=== PATIENT | male | born 1975 | race Caucasian/White ===

== ENCOUNTER 2020-12-19 05:37 | Inpatient (IN) | payer OTHER ==
[2020-12-19] MEDS ORDERED: Celecoxib 200 MG Cap PO ONE (05:45)
[2020-12-19] MEDS ORDERED: Scopolamine 1.5 MG Transdermal Patch TOP ONE (05:45)
[2020-12-19] MEDS ORDERED: Acetaminophen 500 MG Tab PO ONE (05:45)
[2020-12-19] MEDS ORDERED: Dextrose 5%-Lactated Ringers 1,000 ML IV SCH ×2 (06:00→11:45)
[2020-12-19] MEDS ORDERED: cefOXitin 2 GM Vial ONE (06:37)
[2020-12-19] MEDS ORDERED: fentaNYL 250 MCG/5 ML SDV ONE ×2 (07:10→08:40)
[2020-12-19] MEDS ORDERED: Succinylcholine 200 MG/10 ML MDV ONE (07:11)
[2020-12-19] MEDS ORDERED: Glycopyrrolate 0.2 MG/ML 5 ML MDV ONE (07:11)
[2020-12-19] MEDS ORDERED: Dexamethasone 4 MG/ML SDV ONE (07:11)
[2020-12-19] MEDS ORDERED: Ondansetron 4 MG/2 ML SDV ONE (07:11)
[2020-12-19] MEDS ORDERED: Rocuronium 50 MG/5 ML Vial ONE (07:11)
[2020-12-19] MEDS ORDERED: Propofol 200 MG/20 ML SDV ONE (07:11)
[2020-12-19] MEDS ORDERED: Neostigmine Methylsulfate 1 MG/ML 5 ML Syringe ONE (07:11)
[2020-12-19] MEDS ORDERED: cefOXitin 2 GM in Sodium Chloride 0.9% 50 ML IV ONE (07:15)
[2020-12-19] MEDS ORDERED: Ketamine 50 MG in Sodium Chloride 0.9% 49.5 ML IV SCH (07:30)
[2020-12-19] MEDS ORDERED: Magnesium Sulfate 3.7 GM in Sodium Chloride 0.9% 100 ML IV SCH (07:30)
[2020-12-19] MEDS ORDERED: Ketamine 500 MG/5 ML MDV IV SCH (07:30)
[2020-12-19 09:54] LABS: HEMOGLOBIN A1C 7.5 % (4.5-6.2)
[2020-12-19] MEDS ORDERED: hydrOXYzine HCL 100 MG/2 ML SDV IM ONE (10:18)
[2020-12-19] MEDS ORDERED: fentaNYL 100 MCG/2 ML SDV IVPUSH ONE (10:18)
[2020-12-19] MEDS ORDERED: Glucagon,Human Recombinant 1 MG Vial IM PRN ×2 (10:28→12:00)
[2020-12-19] MEDS ORDERED: 50% Dextrose in Water 50 ML Syringe IVPUSH PRN ×2 (10:28→12:00)
[2020-12-19] MEDS ORDERED: Insulin Lispro 100 Unit/ML 3 ML KwikPen SUBCUT ONE (10:40)
[2020-12-19] MEDS ORDERED: Cyclobenzaprine 10 MG Tab PO PRN (11:32)
[2020-12-19] MEDS ORDERED: HYDROmorphone 0.5 MG/0.5 ML Syringe ONE (11:35)
[2020-12-19] MEDS ORDERED: Cetirizine 10 MG Tab PO PRN (11:39)
[2020-12-19] MEDS ORDERED: Insulin Lispro 100 Unit/ML 3 ML KwikPen SUBCUT SCH (12:00)
[2020-12-19] MEDS ORDERED: hydrOXYzine HCL 100 MG/2 ML SDV IM PRN (12:00)
[2020-12-19] MEDS ORDERED: HYDROmorphone 1 MG/ML Syringe IV PRN (12:00)
[2020-12-19] MEDS ORDERED: Calcium Gluconate 10% 1 GM/10 ML SDV IVPUSH PRN (12:00)
[2020-12-19] MEDS ORDERED: diphenhydrAMINE 50 MG/ML SDV IVPUSH PRN (12:00)
[2020-12-19] MEDS ORDERED: Acetaminophen 500 MG Tab PO PRN (12:00)
[2020-12-19] MEDS ORDERED: Labetalol 20 MG/4 ML Syringe IVPUSH PRN (12:00)
[2020-12-19] MEDS ORDERED: HYDROmorphone 0.5 MG/0.5 ML Syringe IVPUSH PRN (12:00)
[2020-12-19] MEDS ORDERED: Metoclopramide 10 MG/2 ML SDV IVPUSH PRN (12:00)
[2020-12-19] MEDS ORDERED: Ondansetron 4 MG/2 ML SDV IVPUSH PRN (12:00)
[2020-12-19] MEDS: cefOXitin 2 GM in Sodium Chloride 0.9% 50 ML IV SCH ×2 (13:01→19:25)
[2020-12-19] MEDS: traMADol 50 MG Tab PO PRN ×2 (13:02→19:26)
[2020-12-19] MEDS: Acetaminophen 500 MG Tab PO SCH ×2 (13:03→21:38)
[2020-12-19] MEDS ORDERED: Pantoprazole 40 MG Vial IVPUSH SCH (14:00)
[2020-12-19] MEDS: Heparin Sodium 5,000 Units/ML Vial SUBCUT SCH (16:06)
[2020-12-19] MEDS: Insulin Lispro 100 Unit/ML 3 ML KwikPen SUBCUT SCH ×2 (17:06→21:38)
[2020-12-19] MEDS: Lactated Ringers 1,000 ML IV SCH (17:16)
[2020-12-19] MEDS: MVI, Adult with Vitamin K 10 ML, Thiamine 200 MG, Zinc/Copper/Manganese/Selenium 1 ML i... IV SCH ×4 (17:49)
[2020-12-19] MEDS: oxyCODONE 5 MG Tab PO PRN (21:48)
[2020-12-20] MEDS: cefOXitin 2 GM in Sodium Chloride 0.9% 50 ML IV SCH ×2 (01:57→08:17)
[2020-12-20] MEDS: traMADol 50 MG Tab PO PRN (01:57)
[2020-12-20] MEDS: Lactated Ringers 1,000 ML IV SCH (01:58)
[2020-12-20] MEDS ORDERED: Iopamidol 612 MG/ML 50 ML SDV PO ONE (03:35)
[2020-12-20] MEDS: Heparin Sodium 5,000 Units/ML Vial SUBCUT SCH ×2 (04:30→15:38)
[2020-12-20] MEDS: Insulin Lispro 100 Unit/ML 3 ML KwikPen SUBCUT SCH ×4 (04:30→22:16)
[2020-12-20] MEDS: Acetaminophen 500 MG Tab PO SCH ×3 (06:08→22:18)
[2020-12-20] MEDS ORDERED: Ondansetron 4 MG Tab.DIS PO PRN (07:04)
[2020-12-20] MEDS ORDERED: hydrOXYzine HCl 25 MG Tab PO PRN (07:05)
[2020-12-20] MEDS ORDERED: Lactated Ringers 1,000 ML IV SCH (07:15)
[2020-12-20] MEDS: Aspirin 325 MG Tab.EC PO SCH (08:16)
[2020-12-20] MEDS: PARoxetine 20 MG Tab PO SCH (08:21)
[2020-12-20] MEDS: Metoprolol Succinate 50 MG Tab.ER PO SCH (08:21)
[2020-12-20] MEDS ORDERED: CHECK SCOPALAMINE PATCH TOP SCH (09:00)
--- NOTE | 2020-12-20 09:03 | CR ---
[facility] HISTORY: Postbariatric surgery FINDINGS: Patient swallowed water-soluble contrast. Upright views of the abdomen show no evidence of extravasation or obstruction. There is a surgical drain in the left upper quadrant. IMPRESSION: Status post bariatric surgery No extravasation or obstruction seen
[2020-12-20] MEDS: SCOPOLAMINE PATCH CHECK TOP SCH (09:34)
[2020-12-20] MEDS: oxyCODONE 5 MG Tab PO PRN ×2 (09:38→18:36)
[2020-12-20] MEDS ORDERED: Pantoprazole 40 MG Delayed-Release Granules 1 Packet PO SCH (11:30)
[2020-12-20] MEDS: MVI, Adult with Vitamin K 10 ML, Thiamine 200 MG, Zinc/Copper/Manganese/Selenium 1 ML i... IV SCH ×4 (15:36)
[2020-12-21] MEDS: oxyCODONE 5 MG Tab PO PRN (01:45)
[2020-12-21] MEDS: Insulin Lispro 100 Unit/ML 3 ML KwikPen SUBCUT SCH (04:43)
[2020-12-21] MEDS: Heparin Sodium 5,000 Units/ML Vial SUBCUT SCH (04:43)
[2020-12-21] MEDS: Acetaminophen 500 MG Tab PO SCH (05:57)
[2020-12-21] MEDS: PARoxetine 20 MG Tab PO SCH (08:00)
[2020-12-21] MEDS: Metoprolol Succinate 50 MG Tab.ER PO SCH (08:00)
[2020-12-21] MEDS: Aspirin 325 MG Tab.EC PO SCH (08:01)
[2020-12-21] MEDS: SCOPOLAMINE PATCH CHECK TOP SCH (08:01)
[2020-12-21 08:02] VITALS: BP 137/86; PULSE 60
--- NOTE | 2020-12-21 08:02 | PN ---
DATE OF SERVICE: 12/20/2020 SUBJECTIVE: Apollo is postop day 1. He states that his pain is controlled with energy protocol and has used oxycodone. Vital signs have been stable. Oral intake 1370. Urine output 2250. AGNES drain put out 150 mL. He has been up ambulating. Has no questions or concerns today. Blood sugars have been since postop 231, 276, 242, and 253. REVIEW OF SYSTEMS: Remainder of review of systems negative for any pertinent positives and negatives. OBJECTIVE: GENERAL: Apollo is a pleasant 45-year-old male. VITAL SIGNS: Height 5 feet 10 inches, weight is 278 pounds, BMI 39.9. TPR is 96.2, 68, 18, blood pressure 142/87. HEENT: Negative. NECK: Supple. HEART: Regular rate and rhythm. LUNGS: Clear. ABDOMEN: Dressings dry and intact. Abdominal binder is on. AGNES drainage is intact as stated above. EXTREMITIES: Without peripheral edema. ASSESSMENT: Diagnostic laparoscopy with: 1. Laparoscopic Kimberly-en-Y gastric bypass. 2. Liver biopsy. 3. Small bowel resection. 4. Excision of peritoneal lesion and small bowel. 5. Repair of paraesophageal diaphragmatic hernia. 6. Excision of mediastinal lipoma. POSTOPERATIVE DIAGNOSES: 1. Morbid obesity. 2. Hepatomegaly. 3. Peritoneal lesion over proximal small bowel, soft, friable, 10 cm. 4. Immobility of mesentery, requiring small bowel resection. 5. Repair of paraesophageal hernia. 6. Mediastinal lipoma. 7. Date of procedure 12/19/2020. Surgeon: Gato Gillespie MD. PLAN: 1. Discontinue D5 LR. 2. LR IV to run at 100 mL/hr. Dressing off. May shower. Bariatric step-2 diet without cereal. 3. Discontinue telemetry. 4. Discontinue continuous pulse ox. 5. Atarax 50 mg q.4 hours p.r.n. pain. 6. Continue use of incentive spirometer and encouraged ambulation 6 times daily. 7. If oral intake 1000 or greater, may saline lock IV. Jesusita Antonio PA-C /[id number]
[2020-12-21] MEDS ORDERED: Cyanocobalamin (Vitamin B12) 1,000 MCG/ML SDV IM ONE (09:00)
[2020-12-21] MEDS ORDERED: Magnesium Hydroxide 400 MG/5 ML Susp 30 ML Cup PO ONE (10:00)
--- NOTE | 2020-12-21 11:59 | DISCH ---
ADMISSION DIAGNOSES: Morbid obesity, type 2 diabetes, bipolar disorder, general anxiety disorder, obstructive sleep apnea, chronic headache, insomnia, hyperaldosteronism, nonalcoholic fatty liver disease, dyslipidemia, hypertension, noncompaction cardiomyopathy. DISCHARGE DIAGNOSES: Diagnostic laparoscopy with: 1. Laparoscopic Kimberly-en-Y gastric bypass surgery. 2. Liver biopsy. 3. Small-bowel resection. 4. Excision of peritoneal lesion in small bowel. 5. Repair of paraesophageal diaphragmatic hernia. 6. Excision of mediastinal lipoma. POSTOPERATIVE DIAGNOSES: 1. Morbid obesity. 2. Hepatomegaly. 3. Peritoneal lesion over proximal small bowel, soft, friable, 10 cm. 4. Immobility of mesentery requiring small bowel resection. 5. Repair of paraesophageal hernia. 6. Mediastinal lipoma. 7. Date of procedure: 12/19/2020. Surgeon: Gato Gillespie MD. HISTORY: Apollo Elizalde is a pleasant 45-year-old male with longstanding history of morbid obesity and increasing comorbidities. After preoperative evaluation and discussion of possible risks and possible complications, he wished to proceed with surgical procedure. HOSPITAL COURSE: Apollo had his surgery on 12/19/2020. He had no operative complications. His blood sugars were 231, 276, 242, and 253. He was started on a step 2 gastric bypass without cereal. On postoperative day #2, blood sugars were 221, 182, 193, and 179. His activity was good. His oral intake adequate, pain controlled, and he was able to be discharged to home. PHYSICAL EXAMINATION: GENERAL: Apollo Elizalde is a 45-year-old male. VITAL SIGNS: Height is 5 feet 10 inches, weight is 278 pounds, BMI is 39.9. TPR is 96.6, 58, 16, blood pressure 136/86. HEENT: Negative. NECK: Supple. HEART: Regular rate and rhythm. LUNGS: Clear. ABDOMEN: Dressings dry and intact. AGNES drain is intact and will be removed prior to discharge. Abdominal binder has been on. EXTREMITIES: Without peripheral edema. DISPOSITION: Discharged to home. CONDITION: Stable and improving. FOLLOWUP APPOINTMENT: Jesusita Antonio PA-C, on 12/27/2020 at 10 a.m. HOME MEDICATIONS: 1. Milk of magnesia 30 mL 2 doses were sent home with the patient to take 1 daily p.r.n. constipation. 2. Oxycodone 5 mg q.6 hours p.r.n. pain, #28. 3. Tylenol Extra-Strength 1000 mg oral q.8 hours. 4. Zofran ODT 4 mg every 4 hours p.r.n. nausea. 5. He is to resume home medication of: a. Zyrtec 10 mg oral daily. b. Aspirin 975 mg oral daily. c. Hydrochlorothiazide 25 mg oral daily. d. Paxil 40 mg oral daily. e. Toprol-XL 100 mg oral daily. f. Cialis 10 mg oral as directed. g. Fenofibrate 145 mg oral daily. h. Inspra 200 mg oral twice a day. i. Jardiance 25 mg oral daily. 6. To discontinue vitamins and supplements until first postop appointment. DIET: Step 2 gastric bypass diet with no cereal until 01/03/2021. Drink 8 to 10 glasses of water a day. ACTIVITY AFTER DISCHARGE: No lifting over 10 pounds for 2 weeks. OTHER ACTIVITY: Walk at least 6 times daily inside your home. Driving after discharge: Do not drive for 1 week. DISCHARGE INSTRUCTIONS: Shower/bathing: May shower. Notify provider if any fever, increased pain, swelling, redness, drainage, nausea, vomiting. Wound incision care: Keep site clean and dry. Wear abdominal binder for 2 weeks and then as tolerated. SPECIAL INSTRUCTION: 1. Use incentive spirometer 10 times every hour while awake. 2. Check blood sugars 4 times a day and bring record of results to clinic appointment. 3. Walk around for several minutes for every hour you are riding in the car. /[id number]
--- NOTE | 2021-01-06 15:40 | OR ---
DATE OF PROCEDURE: 12/19/2020 SURGEON: Gato Gillespie MD PREOPERATIVE DIAGNOSIS: Morbid obesity. POSTOPERATIVE DIAGNOSES: 1. Morbid obesity. 2. Marked hepatomegaly. 3. Peritoneal implant over proximal small bowel. 4. Immobile mesentery requiring additional small bowel resection to allow adequate gastrojejunostomy. 5. Paraesophageal diaphragmatic hernia. 6. Mediastinal lipoma. OPERATIVE PROCEDURES: Diagnostic laparoscopy with: 1. Laparoscopic Kimberly-en-Y gastric bypass with long limb gastroenterostomy (23358). 2. Nadir-Cut needle liver biopsy (22782). 3. Small bowel resection (31242). 4. Excision of peritoneal nodule over the proximal small bowel (26155). 5. Repair of paraesophageal diaphragmatic hernia (42737). 6. Excision of mediastinal lipoma (93962). ANESTHESIA: General. REEL CUTTER: Jesusita Antonio PA-C INDICATIONS FOR PROCEDURE: This is a 45-year-old male presenting with longstanding morbid obesity and increasingly significant comorbidities. After preoperative evaluation and discussion, he wished to proceed with a gastric bypass procedure. Potential risks of the procedure including bleeding, infection, leaks from various GI tract closures, problems with bowel obstruction over time as well as possibility of cardiopulmonary, septic, or hemorrhagic complications leading to were discussed, and the patient wishes to proceed. DETAILS OF PROCEDURE: The patient was taken to the operating room, and after general endotracheal anesthesia was induced, placed in a lithotomy position. The abdomen was prepped and draped. 15 cm inferior and 5 cm left of the xiphoid process transverse incision was made and the peritoneal cavity entered under direct vision with an Optiview trocar inflated to 15 mmHg pressure of CO2. The laparoscope was then reinserted. No underlying trocar insertion site injuries were seen. Following this, 5 additional trocars were placed across the upper mid abdomen. Bilateral transversus abdominis plane blocks were placed. The liver was examined and noted to be markedly enlarged and fatty infiltrated. Nadir-Cut needle biopsy was obtained from left lobe of the liver. Minimal bleeding from the biopsy sites was controlled with electrocautery. The omentum was then divided in the midline up to the level of transverse colon. This allowed identification of the small bowel and ligament of Treitz. Small bowel was then traced out 200 cm distal. At that point, it was divided transversely with a CHUN stapler. The small bowel at this point was noted to be quite immobile, and in order to facilitate adequate mobility, we subsequently formed jejunojejunostomy to allow tension-free gastrojejunostomy roughly 10 cm of small bowel and the biliopancreatic limb was excised. This was accomplished with a CHUN stapler for the bowel division and Harmonic scalpel for the mesenteric division. The small bowel specimen was then delivered from the field. Of note, roughly 10 cm distal to the ligament of Treitz, a 2 to 3 mm soft friable lesion was noted on the peritoneal surface of the small bowel. This was excised and sent as a separate specimen. The small bowel was then traced out additional 200 cm where the [id number] enteroenterostomy was accomplished with internal firing of the Endo-CHUN 60 mm stapler. Common opening was then closed transversely with the same stapler and the angles anastomosed and mesenteric defect approximated with some 0 Ethibond sutures along with fibrin sealant. The divided end of the Kimberly limb was then from the mesentery for a few centimeters which allowed an antecolic positioning of the Kimberly limb up to the level of the gastroesophageal junction without tension. The liver was then retracted anteriorly. The patient was noted to have a moderate-sized paraesophageal diaphragmatic hernia. The peritoneum overlying this was incised and reflected downward. During the course of the dissection, 3 to 4 cm mediastinal lipoma was encountered and this was excised to allow more adequate closure of the crura which was then accomplished with 0 Ethibond sutures reinforced with PTFE pledgets. The gastrointestinal catheter was inflated to 15 mL and pulled up snugly against the EG junction, gastric wall over the apex, balloon was then marked with electrocautery. The balloon catheter deflated and pulled up into the esophagus. The lesser omental tissue was then incised allowing dissection behind the stomach at that level. Pouch formation was initiated with transverse firing of the CHUN stapler at the level of the cauterized ashlee in the gastric cardia. Pouch formation was completed with additional firings of the CHUN staplers up to and through the angle of His. Upon completion of the pouch, both staple lines were noted to be intact. The anvil of a 25 mm EEA stapler was attached to [place] sump-type tube. The latter was brought down through the mouth and taken out through a small opening in the gastric pouch allowing the anvil likewise to be pulled down within the gastric pouch. The divided end of the Kimberly limb was then opened, and the main body of EEA stapler was passed several centimeters into the lumen of the small bowel, brought up the anvil, and united with it thus creating the gastrojejunostomy. Upon removal of the stapler, double donuts of mucosa were noted within it. The small bowel was closed off with a vascular staple line. Gastrojejunostomy was reinforced with some 3-0 Vicryl seromuscular stitch along with fibrin sealant. Leak test was accomplished with injection of 120 mL of air in the gastric pouch while it was submerged with cefoxitin-containing saline solution. No leaks were identified. A single Jeyson-Willis drain was taken out through the left lateral trocar site and positioned adjacent to the gastrojejunostomy from there up into the splenic fossa. The trocars were removed and peritoneal cavity deflated. Incisions were closed using 4-0 Vicryl skin stitch which were also used to fix the drain. The patient was taken to the recovery room in satisfactory condition. Physician credit control assistant, Jesusita Antonio, played an essential role in assisting in this case helping to position the patient, retract structures as needed, as well as suturing and cutting sutures when indicated. Her presence improved patient safety and decreased operative time. Gato Gillespie MD /[id number]
== END 2020-12-21 10:20 | disposition home or self-care (01) | DRG 620 ==
LOC: JP.SDSSCHI 05:37 → JP.SDS 05:37 → EDSTATUS 07:15 → JP.MS 10:10
PROVIDERS: ADMIT Surgery; ATTEND Surgery
PROC: 0D164ZA Bypass Stomach to Jejunum, Percutaneous Endoscopic Approach (ICD-10-PCS; principal; 2020-12-19)
PROC: 0FB24ZX Excision of Left Lobe Liver, Percutaneous Endoscopic Approach, Diagnostic (ICD-10-PCS; 2020-12-19)
PROC: 0DB84ZZ Excision of Small Intestine, Percutaneous Endoscopic Approach (ICD-10-PCS; 2020-12-19)
PROC: 0BQT4ZZ Repair Diaphragm, Percutaneous Endoscopic Approach (ICD-10-PCS; 2020-12-19)
PROC: 0JB83ZZ Excision of Abdomen Subcutaneous Tissue and Fascia, Percutaneous Approach (ICD-10-PCS; 2020-12-19)
DX: E66.01 Morbid (severe) obesity due to excess calories (principal); I50.22 Chronic systolic (congestive) heart failure; I42.8 Other cardiomyopathies; R16.0 Hepatomegaly, not elsewhere classified; F31.9 Bipolar disorder, unspecified; F41.1 Generalized anxiety disorder; G47.33 Obstructive sleep apnea (adult) (pediatric); G47.00 Insomnia, unspecified; E78.5 Hyperlipidemia, unspecified; K66.9 Disorder of peritoneum, unspecified; K44.9 Diaphragmatic hernia without obstruction or gangrene; I11.0 Hypertensive heart disease with heart failure; D17.1 Benign lipomatous neoplasm of skin and subcutaneous tissue of trunk; E26.9 Hyperaldosteronism, unspecified; E87.6 Hypokalemia; K76.0 Fatty (change of) liver, not elsewhere classified; E11.65 Type 2 diabetes mellitus with hyperglycemia; Z68.41 Body mass index [BMI] 40.0-44.9, adult; Z79.82 Long term (current) use of aspirin; Z79.899 Other long term (current) drug therapy; Z88.1 Allergy status to other antibiotic agents; Z88.8 Allergy status to other drugs, medicaments and biological substances
CPT/HCPCS: 36415; 74240; 74240-26; 80053; 82947; 83036; 83735; 83880; 84100; 85025; 85027; 86850; 86900; 86901; 88304; 88305; 88307; 88313; 88341; 88342; 88360; 94762; A9270-GY; C9113; J0171; J0330; J0694; J1100; J1170; J1644; J1815; J1815-GY; J2405; J2704; J2710; J2795; J3010; J3410; J3411; J3420; J3475; J3490; J7050; J7120; J7121; Q9967

== ENCOUNTER 2021-02-10 07:50 | Day surgery (SDC) | payer BC, OTHER ==
[~2021-02-10 07:50] MED LIST: Cyanocobalamin (Vitamin B12) 1,000 MCG/ML SDV IM ONE; Glycopyrrolate 0.2 MG/ML 2 ML SDV IVPUSH ONE; Lactated Ringers 1,000 ML IV ONE
[2021-02-10] MEDS ORDERED: fentaNYL 100 MCG/2 ML SDV ONE (07:51)
[2021-02-10] MEDS ORDERED: Midazolam 1 MG/ML 2 ML SDV ONE (07:51)
[2021-02-10] MEDS ORDERED: Propofol 200 MG/20 ML SDV ONE (07:51)
[2021-02-10] MEDS ORDERED: MVI, Adult with Vitamin K 10 ML, Thiamine 200 MG, Chromium/Copper/Mang/Selen/Zn 1 ML in... IV ONE ×4 (08:30)
[2021-02-10 11:55] VITALS: BP 149/94; PULSE 53
--- NOTE | 2021-02-15 14:42 | OR ---
DATE OF PROCEDURE: 02/10/2021 SURGEON: Gato Gillespie MD PREOPERATIVE DIAGNOSIS: Probable stricture involving gastrojejunostomy. POSTOPERATIVE DIAGNOSIS: Tight stricture involving gastrojejunostomy. OPERATIVE PROCEDURE: Upper GI endoscopy with dilation of gastrojejunostomy (20231). ANESTHESIA: IV sedation. INDICATIONS FOR PROCEDURE: A 45-year-old status post Kimberly-en-Y gastric bypass on 12/19/2020, presenting with symptoms of stricturing at his gastrojejunostomy. Plan is to proceed with upper endoscopy with biopsies and dilation as indicated. Potential risks including bleeding and perforation were discussed, and the patient wishes to proceed. DETAILS OF PROCEDURE: The patient was taken to the operating room and placed in a left lateral decubitus position. IV sedation was administered, after which the upper GI endoscope was passed orally through the length of the esophagus and into the area of the gastric pouch. No retained food or fluid was noted. The patient was noted to have a quite tight stricture of the gastrojejunostomy. Bard gastrointestinal catheter was then centered across the anastomosis with fluoroscopic surveillance and inflated to 30-Bhutanese size. This was held in position for 1 minute, after which the balloon catheter was deflated and withdrawn. Scope was easily then passed through the anastomosis. No complications were noted and the procedure concluded. The patient was taken to the recovery room in satisfactory condition. Gato Gillespie MD /[id number]
== END 2021-02-10 12:12 | disposition home or self-care (01) ==
LOC: JP.SDS 07:50
PROVIDERS: ATTEND Surgery
DX: K91.89 Other postprocedural complications and disorders of digestive system (principal); G47.33 Obstructive sleep apnea (adult) (pediatric); Z98.84 Bariatric surgery status
CPT/HCPCS: 43245; J2250; J2704; J3010; J3411; J3420; J3490; J7120

== ENCOUNTER 2021-03-03 06:10 | Day surgery (SDC) | payer OTHER ==
[2021-03-03] MEDS ORDERED: fentaNYL 100 MCG/2 ML SDV ONE (07:30)
[2021-03-03] MEDS ORDERED: Lactated Ringers 1,000 ML IV SCH (07:30)
[2021-03-03] MEDS ORDERED: Midazolam 1 MG/ML 2 ML SDV ONE (07:30)
[2021-03-03] MEDS ORDERED: Cyanocobalamin (Vitamin B12) 1,000 MCG/ML SDV IM ONE (07:30)
[2021-03-03] MEDS ORDERED: Propofol 200 MG/20 ML SDV ONE (07:30)
[2021-03-03] MEDS ORDERED: Glycopyrrolate 0.2 MG/ML 2 ML SDV IVPUSH ONE (08:30)
[2021-03-03] MEDS ORDERED: MVI, Adult with Vitamin K 10 ML, Thiamine 200 MG, Chromium/Copper/Mang/Selen/Zn 1 ML in... IV ONE ×4 (08:45)
[2021-03-03] MEDS ORDERED: Dexamethasone 4 MG/ML SDV ONE (09:30)
[2021-03-03 10:42] VITALS: BP 130/80; PULSE 67
--- NOTE | 2021-03-03 11:37 | OR ---
DATE OF PROCEDURE: 03/03/2021 SURGEON: Chuy Cao MD PROCEDURE: Esophagogastroduodenoscopy with dilation, balloon used 36-[place]. COMPLICATION: None. SENIOR SOFTWARE ENGINEER: None. PREOPERATIVE DIAGNOSIS: Narrowing of gastrojejunal anastomosis secondary to Kimberly-en-Y. POSTOPERATIVE DIAGNOSIS: Narrowing of gastrojejunal anastomosis secondary to Kimberly-en-Y. RISKS: Risks, benefits, alternatives, and limitations including, but not limited to, infection bleeding, perforation, and other risks not listed here were explained to the patient who wished to proceed. PROCEDURE IN DETAIL: The patient was placed in left lateral decubitus position. The EGD scope was introduced and advanced atraumatically to the gastrojejunal anastomosis. This was noted to be narrowed, approximately 95%. Balloon was then introduced past this. This was subsequently dilated. The scope was easily passed through this. No abnormalities noted after dilation. The patient tolerated the procedure well. Chuy Cao MD /[id number]
== END 2021-03-03 10:45 | disposition home or self-care (01) ==
LOC: JP.SDS 06:10
PROVIDERS: ATTEND Surgery
DX: K91.89 Other postprocedural complications and disorders of digestive system (principal); G47.33 Obstructive sleep apnea (adult) (pediatric); E11.9 Type 2 diabetes mellitus without complications; K21.9 Gastro-esophageal reflux disease without esophagitis; E78.5 Hyperlipidemia, unspecified; Z98.84 Bariatric surgery status
CPT/HCPCS: 43249; J1100; J2250; J2704; J3010; J3411; J3420; J3490; J7120

== ENCOUNTER 2021-03-05 15:44 | Inpatient (IN) | payer OTHER ==
[2021-03-05] MEDS ORDERED: Piperacillin/Tazobactam 3.375 GM in Sodium Chloride 0.9% 50 ML IV SCH (18:30)
[2021-03-05] MEDS ORDERED: Sodium Chloride 0.9% 50 ML ONE (18:30)
[2021-03-05] MEDS ORDERED: Neostigmine Methylsulfate 1 MG/ML 5 ML Syringe ONE (18:44)
[2021-03-05] MEDS ORDERED: Ondansetron 4 MG/2 ML SDV ONE (18:44)
[2021-03-05] MEDS ORDERED: Dexamethasone 4 MG/ML SDV ONE (18:44)
[2021-03-05] MEDS ORDERED: Propofol 200 MG/20 ML SDV ONE (18:44)
[2021-03-05] MEDS ORDERED: Succinylcholine 200 MG/10 ML MDV ONE (18:44)
[2021-03-05] MEDS ORDERED: fentaNYL 250 MCG/5 ML SDV ONE ×2 (18:44→19:04)
[2021-03-05] MEDS ORDERED: Glycopyrrolate 0.2 MG/ML 5 ML MDV ONE (18:44)
[2021-03-05] MEDS ORDERED: Rocuronium 50 MG/5 ML Vial ONE (18:44)
[2021-03-05] MEDS ORDERED: Benzocaine/Cetylpyridinium/Menthol Lozenge MUCMEM PRN (18:54)
[2021-03-05] MEDS ORDERED: diphenhydrAMINE 50 MG/ML SDV IVPUSH PRN (18:54)
[2021-03-05] MEDS ORDERED: hydrOXYzine HCL 100 MG/2 ML SDV IM PRN (18:54)
[2021-03-05] MEDS ORDERED: Pantoprazole 40 MG Vial IVPUSH SCH (19:00)
[2021-03-05] MEDS ORDERED: Meropenem 500 MG SDV ONE (19:24)
[2021-03-05] MEDS ORDERED: Sodium Chloride 0.9% 10 ML ONE (19:24)
[2021-03-05] MEDS ORDERED: Bupivacaine 0.5% 50 ML MDV ONE (19:34)
[2021-03-05] MEDS ORDERED: Ketorolac 30 MG/ML SDV ONE ×2 (19:35→19:36)
[2021-03-05] MEDS ORDERED: Sugammadex Sodium 200 MG/2 ML VIAL ONE (19:41)
--- NOTE | 2021-03-05 19:54 | CONS ---
DATE OF SERVICE: 03/05/2021 REFERRING PHYSICIAN: CONSULTING PHYSICIAN: Chuy Cao MD REASON FOR CONSULTATION: Abdominal pain. HISTORY OF PRESENT ILLNESS: This is a 45-year-old male who underwent an EGD with dilation on 03/03/2021. The patient presented to his local emergency room with "a funny feeling." The patient had a CT scan, which showed small amount of pneumoperitoneum with no definitive abscess, but concerning for perforation around the gastrojejunal anastomosis. The patient originally underwent a Kimberly-en-Y on 01/05/2021, and had a previous dilation. The patient underwent the dilation on 03/03/2021, with a 36-Serbian balloon, which was dilated but not held under pressure. This pain is described as 2 to 3 out of 10. His white blood cell count is normal. His vital signs are stable. He is afebrile. PAST MEDICAL HISTORY: Kimberly-en-Y, hypokalemia, bipolar, type 2 diabetes, drug-induced polyneuropathy, sleep apnea, chronic head and neck pain, osteoarthritis, hyperaldosteronism, adenoma of the right adrenal gland, nonalcoholic fatty liver disease, dyslipidemia, hypertension, obesity, maladaptive disorders, cardiomyopathy, chronic systolic heart failure, erectile dysfunction, and hyperlipidemia. SOCIAL HISTORY: The patient presents with family today. REVIEW OF SYSTEMS: GENERAL: Appropriate for condition. HEENT: No symptoms. CARDIOVASCULAR: No chest pain. RESPIRATORY: No shortness of breath. GASTROINTESTINAL: As above. GENITOURINARY: No dysuria. NEUROLOGIC: No gross abnormalities. PSYCHIATRIC: No gross abnormalities. The remainder review of systems was reviewed and is negative. PHYSICAL EXAMINATION: VITAL SIGNS: Blood pressure 139/85, temperature 98.1, pulse 60, and respirations 23. GENERAL: The patient is resting comfortably. HEENT: Pupils are equal. NECK: Supple. LUNGS: Clear. CARDIOVASCULAR: Regular rhythm and rate. RESPIRATORY: Lungs are clear to auscultation bilaterally. ABDOMEN: Nontender and nondistended. EXTREMITIES: Full range of motion. NEUROLOGIC: Oriented x3. PSYCHIATRIC: No gross depression. LABORATORY RESULTS: Show normal white blood cell count. IMAGING: I did review the CT scan. ASSESSMENT AND PLAN: Probable perforation secondary to esophagogastroduodenoscopy dilation. The patient is very stable at this time. There is some free air. We will perform an EGD to identify if there is a small leak or perforation and clip it, and then continue on for diagnostic laparoscopy. We discussed the risks, benefits, alternatives, and limitations including, but not limited to infection, bleeding, perforation, false positives, and false negatives. We also discussed sepsis, my experience with the procedure, and other risks not listed here. The patient understands these risks and wishes to proceed. Chuy Cao MD /[id number]
[2021-03-05] MEDS: Sodium Chloride 0.9% 1,000 ML IV SCH (20:45)
[2021-03-05] MEDS: Piperacillin/Tazobactam 4.5 GM in Sodium Chloride 0.9% 100 ML IV SCH (23:43)
[2021-03-06] MEDS: Sodium Chloride 0.9% 1,000 ML IV SCH ×3 (05:04→23:43)
[2021-03-06] MEDS: Piperacillin/Tazobactam 4.5 GM in Sodium Chloride 0.9% 100 ML IV SCH ×4 (05:04→23:29)
[2021-03-06] MEDS: fentaNYL 100 MCG/2 ML SDV IVPUSH PRN ×4 (05:41→23:39)
[2021-03-06] MEDS ORDERED: Iopamidol 612 MG/ML 500 ML Multipack Bottle PO ONE (10:02)
--- NOTE | 2021-03-06 10:44 | CR ---
[facility] HISTORY: Free air post endoscopic dilatation FINDINGS: Patient swallowed soluble contrast without difficulty. Esophagus had a normal contour. There are surgical drains in the epigastric region. On the right lateral images there is a linear collection of barium going posteriorly. This is smoothly marginated and perpendicular to the lining of the GE junction. This is not typical for extravasation. There is no contrast outside the lumen. There is no contrast within the surgical drain field. Impression: Small defect at the GE junction posteriorly is not typical for a tear. There is no evidence of extravasation. This likely represents a fold in redundant mucosa
--- NOTE | 2021-03-06 11:34 | OR ---
DATE OF PROCEDURE: 03/05/2021 SURGEON: Chuy Cao MD PROCEDURE: 1. Esophagogastroduodenoscopy. 2. Diagnostic laparoscopy. FINDINGS: No definitive evidence of breech at gastrojejunal anastomosis. PREOPERATIVE DIAGNOSIS: Concern for esophageal perforation. POSTOPERATIVE DIAGNOSIS: Concern for esophageal perforation. INDICATIONS: This is a pleasant 45-year-old male who approximately 72 hours ago underwent an EGD with 36-Burkinan balloon dilation. The patient developed mild abdominal pain, with subsequently a CT scan, and there was concern for perforation due to possible air noted in the abdomen. RISKS: Risks, benefits, alternatives, and limitations including, but not limited to infection, bleeding, sepsis, worsening, anastomotic failure, possibility of open surgery and other risks not listed here were explained to the patient and he wished to proceed. PROCEDURE IN DETAIL: The patient was placed in the supine position. Using the 15 cm inferior and 5 cm to the right of the xiphoid/umbilicus, the previous port sites were opened. This was inflated using a Veress needle. This was followed by an Optiview trocar. No evidence of injury was noted during the entry. Two 5 mm ports were also introduced into 2 previous operative umbilical ports. The omentum was noted not to be wrapped around anything suggesting a mild inflammatory process. The gastrojejunal anastomosis was inspected. There was no inflammation, no fluid collection, no abscess, and no suze or gross defect noted. There was a mild adhesion which would be characterized as typical connecting from the liver bed in this area. The patient was placed in a head-down position. The area was flooded with normal saline. The EGD scope was introduced carefully. No definitive leak or tear could be noted. No bubbles were noted on the "leak test" using the normal saline. The air was removed after inspection of the anastomosis, the pouch, and associated Kimberly-en-Y limb. The EGD scope was then removed under direct visualization. 4 mL of Tisseel was then placed around the anastomosis. Four anteriorly and four posteriorly in a traditional fashion. Two 10-flat Jeyson-Willis drains were then placed in proximity/directly over the anastomosis. Of note, the abdomen was also cultured by injecting a small volume of saline as there was no fluid noted in the abdomen and then suctioning it out and culturing the aforementioned fluid. The air was removed. The wounds were closed along with stitches where the drains were stitched into place. Also of note, meropenem was used during the procedure and a small amount was left to facilitate termination of any bacteria remaining. The patient tolerated the procedure well. Chuy Cao MD /[id number]
[2021-03-06] MEDS ORDERED: Piperacillin/Tazobactam/Dext 4.5 GM in Premix Bag 1 BAG IV SCH (12:00)
[2021-03-06] MEDS ORDERED: Pantoprazole 40 MG Vial IVPUSH SCH (18:00)
[2021-03-07] MEDS: Piperacillin/Tazobactam 4.5 GM in Sodium Chloride 0.9% 100 ML IV SCH (05:46)
[2021-03-07] MEDS: fentaNYL 100 MCG/2 ML SDV IVPUSH PRN ×2 (05:51→09:10)
[2021-03-07 08:01] VITALS: BP 100/41; PULSE 76
== END 2021-03-07 12:10 | disposition home or self-care (01) | DRG 327 ==
LOC: JP.ICU 17:49
PROVIDERS: ADMIT Surgery; ATTEND Surgery
PROC: 0DJ04ZZ Inspection of Upper Intestinal Tract, Percutaneous Endoscopic Approach (ICD-10-PCS; principal; 2021-03-05)
DX: R10.9 Unspecified abdominal pain (principal); I50.22 Chronic systolic (congestive) heart failure; I42.9 Cardiomyopathy, unspecified; Z98.84 Bariatric surgery status; E87.6 Hypokalemia; E11.9 Type 2 diabetes mellitus without complications; G47.30 Sleep apnea, unspecified; G89.29 Other chronic pain; R51.9 Headache, unspecified; M54.2 Cervicalgia; M19.90 Unspecified osteoarthritis, unspecified site; E78.5 Hyperlipidemia, unspecified; E66.9 Obesity, unspecified; I11.0 Hypertensive heart disease with heart failure; N52.9 Male erectile dysfunction, unspecified; K76.0 Fatty (change of) liver, not elsewhere classified; E26.9 Hyperaldosteronism, unspecified; F31.9 Bipolar disorder, unspecified
CPT/HCPCS: 36415; 74240; 74240-26; 80048; 85025; 87070; 87075; 87205; A9270-GY; C9113; J0330; J1100; J1885; J2185; J2405; J2543; J2704; J2710; J3010; J3410; J3490; J7030; J7120; Q9967